=== PATIENT | male | born 1970 | race Caucasian/White ===

== ENCOUNTER 2019-03-23 22:54 | Emergency (ER) | payer OTHER ==
[~2019-03-23] VITALS: Ht 177.8 cm; Wt 79.4 kg
[~2019-03-23 22:54] MED LIST: AMOXICILLIN; AUGMENTIN 875875 M1 PO; ERYTHROMYCIN E3.5 G1 OPHTHALMIC; IBUPROFEN 200200 M1 PO; KEFLEX500 MG PO; NAPHCON15 ML OP; NORCO 5-325 TA1 EACH PO; TOBREX5 ML OP; TRAMADOL 50 MG50 MG PO
[2019-03-23 23:21] LABS: ABSOLUTE BASOPHILS 0.1 thou/uL (0.0-0.2); ABSOLUTE EOSINOPHILS 0.2 thou/uL (0.0-0.7); ABSOLUTE LYMPHOCYTES 1.8 thou/uL (0.8-5.3); ABSOLUTE MONOCYTES 0.9 thou/uL (0.0-1.2); ABSOLUTE NEUTROPHILS 9.7 thou/uL (1.6-8.1); BASOPHILS 0.7 %; EOSINOPHILS 1.4 %; HEMATOCRIT 44.4 % (42.0-52.0); HEMOGLOBIN 15.1 gm/dL (14.0-18.0); LYMPHOCYTES 14.4 %; MCH 31.6 pg (26.0-34.0); MCHC 34.1 g/dL (28.0-37.0); MCV 92.8 fL (80.0-100.0); MONOCYTES 7.3 %; MPV 8.7 fl. (7.2-11.1); NUCLEATED RBCS 0 /100WBC; PLATELET COUNT* 235 thou/uL (150-400); POLYS 76.2 %; RBC 4.79 mil/uL (4.50-6.00); RDW-CV 12.9 % (10.5-14.5); WBC 12.7 thou/uL (4.0-11.0)
[2019-03-23 23:30] LABS: CALCIUM 9.2 mg/dL (8.5-10.1); CREATININE 1.2 mg/dL (0.6-1.3); POTASSIUM 3.6 mmol/L (3.5-5.1)
[2019-03-23 23:35] LABS: ALBUMIN 3.5 g/dL (3.4-5.0); TOTAL BILIRUBIN 0.3 mg/dL (<0.1-1.0); TOTAL PROTEIN 7.2 g/dL (6.4-8.2)
[2019-03-23] MEDS ORDERED: PROAIR HFA8.5 GM INH (23:57)
[2019-03-23] MEDS ORDERED: NORCO 7.5-3251 EACH PO (23:57)
[2019-03-23] MEDS ORDERED: PREDNISONE50 MG PO (23:57)
[2019-03-24 00:18] VITALS: BP 130/72
== END 2019-03-24 00:20 | disposition home or self-care (01) ==
LOC: M.ERS 22:54
PROVIDERS: Emergency Medicine
DX: J40 Bronchitis, not specified as acute or chronic (principal); F17.210 Nicotine dependence, cigarettes, uncomplicated